=== PATIENT | female | born 1995 | race Caucasian/White ===

== ENCOUNTER 2018-06-20 16:59 | Inpatient (IN) | payer OTHER, MEDICAID ==
[~2018-06-20] VITALS: Ht 157.5 cm; Wt 82.6 kg
--- NOTE | ~2018-06-20 | CON ---
[address] [address] CONSULTATION Name: ANA CHISHOLM Room: [address] IN M.R.#: [id number] Admission: 06/20/18 Attend Phys: Shravan Santos Discharge: Date of : 89 Report #: [id number] THIS REPORT FOR: //name// CC: NATHALIA physician/PCP Bob Brennan DICTATED BY: Francy Green [facility] DATE OF SERVICE: 06/21/2018 PRIMARY CARE PHYSICIAN: The patient does not have a PCP at this time. Please note at the time of this dictation, the patient was seen and physically examined by myself. REASON FOR CONSULTATION: Abdominal pain, nausea and vomiting. HISTORY OF PRESENT ILLNESS: This is a 23-year-old female who presented to the Emergency Room, started having nausea and vomiting and diarrhea on Thursday afternoon. She does state that her daughter had a viral illness of nausea, vomiting and diarrhea earlier in the week. She states that she started developing some pain on Thursday, which got significantly worse on Thursday which was in her right upper quadrant. She states she had numerous episodes of nausea and vomiting and diarrhea. She states at the very end of her vomiting, she noticed just a tinge of some bright red blood when she was dry heaving. Diarrhea, she denies any bright red blood or any melena. She states she was going 5-10 times a day along with her nausea and vomiting as well. Prior to starting of these episodes on Thursday, she was doing well and had no complaints. Currently, her abdominal discomfort is rated at 3. She is no longer having any vomiting, just some very slight nausea and she has not had a bowel movement since yesterday. ALLERGIES: No known drug allergies. MEDICATIONS: From home control pills. PAST MEDICAL HISTORY: Hypertension, RSV. PAST SURGICAL HISTORY: Negative. SOCIAL HISTORY: She does smoke. Alcohol socially. She denies recreational drug use; however, she did test positive for THC, which she states she does not do regularly. REVIEW OF SYSTEMS: Twelve-point review of systems is essentially negative except what is [place] [address] CONSULTATION Name: ANA CHISHOLM Beata Room: [address] [place] [facility]#: [id number] Admission: 06/20/18 Attend Phys: Shravan Santos Discharge: Date of : 89 Report #: [id number] PHYSICAL EXAMINATION: VITAL SIGNS: Temperature 37.4, pulse 95, respirations 16, blood pressure 147/61. HEART: Regular rate and rhythm. LUNGS: Clear. ABDOMEN: Soft, positive bowel sounds in all 4 quadrants with tenderness noted in the right upper quadrant. LABORATORY DATA: Hemoglobin is 11.5 on admission, her white count was 25.2. She is down to 9.4, platelets 238, GFR is 154. LFTs are completely normal and again she did test positive for marijuana. Ultrasound is pending. CT was negative and chest x-ray was negative. IMPRESSION: 1. Nausea and vomiting, improved. 2. Diarrhea, improving. 3. Abdominal pain, significant improvement. 4. Leukocytosis, resolved. 5. Positive for THC. PLAN: 1. Awaiting results of ultrasound. If negative, advanced diet as tolerated. 2. If abdominal pain should return, we will consider a CCK PIPIDA scan. 3. Further recommendations to be made once the above have been noted. Thank you for allowing us to participate in this patient's care. Please do not hesitate to call with any questions in regard to this consult. By: [id number] Guidry MD /nt
[~2018-06-20 16:59] MED LIST: ACETAMINOPHEN-1 EAC1 PO; BLEPH-105 ML OPHTHALMIC; MONO-LINYAH1 EACH PO; NAPROSYN250 MG PO; NAPROSYN500 MG PO; NOHOMEMEDICATIONS; ONDANSETRON HCL4 M2 PO; ZOFRAN ODT4 M1 PO
[2018-06-20 17:05] VITALS: BP 183/113
[2018-06-20 17:24] LABS: URINE BLOOD 3+ (Negative); URINE CLARITY CLEAR; URINE COLOR YELLOW; URINE GLUCOSE-RANDOM NEGATIVE (Negative); URINE LEUKOCYTES-REFLEX NEGATIVE (Negative); URINE NITRITE-REFLEX NEGATIVE (Negative); URINE PROTEIN 1+ (Negative); URINE SPECIFIC GRAVITY >= 1.030 (1.005-1.030); URINE UROBILINOGEN 0.2 E.U./dl (0.2-1.0)
[2018-06-20 17:27] LABS: ICTOTEST (BILI CONFIRMATORY) Negative (Negative); URINE BILIRUBIN 1+ (Negative); URINE KETONES 3+ (Negative)
[2018-06-20 17:31] LABS: AMP/METHAMP Negative (Negative); BARBITURATES Negative (Negative); BENZODIAZEPINES Negative (Negative); COCAINE Negative (Negative); METHADONE Negative (Negative); OPIATES Negative (Negative); PCP Negative (Negative); THC POSITIVE (Negative)
[2018-06-20 17:35] LABS: HEMATOCRIT 44.3 % (37.0-47.0); MCH 29.3 pg (26.0-34.0); MCHC 33.9 g/dL (28.0-37.0); MCV 86.4 fL (80.0-100.0); MPV 9.4 fl. (7.2-11.1); NUCLEATED RBCS 0 /100WBC; PLATELET COUNT* 400 thou/uL (150-400); RBC 5.12 mil/uL (4.20-5.00); RDW-CV 15.1 % (10.5-14.5); WBC 25.2 thou/uL (4.0-11.0)
[2018-06-20 17:38] LABS: SQUAMOUS >10 Many /LPF (0-3)
[2018-06-20 17:39] LABS: BACTERIA-REFLEX 1-9 Few /HPF (None Seen); CASTS None Seen /LPF (None Seen); CRYSTALS None Seen /LPF (None Seen); MUCUS 4-6 Moderate strn/LPF (None Seen); URINE RBC 0-2 Rare /HPF (0-2); URINE WBC-REFLEX 0-5 Rare /HPF (0-5)
[2018-06-20 17:44] LABS: APTT 28.9 Seconds (25.0-31.3); PROTIME 10.3 Seconds (9.20-11.50)
[2018-06-20 17:49] LABS: ALBUMIN 4.5 g/dL (3.4-5.0); CALCIUM 9.2 mg/dL (8.5-10.1); CREATININE 0.6 mg/dL (0.6-1.3); POTASSIUM 3.6 mmol/L (3.5-5.1); TOTAL BILIRUBIN 0.6 mg/dL (<0.1-1.0)
[2018-06-20 18:00] LABS: ABSOLUTE LYMPHOCYTES 1.3 thou/uL (0.8-5.3); ABSOLUTE NEUTROPHILS 22.9 thou/uL (1.6-8.1); PLATELET ESTIMATE ADEQUATE
--- NOTE | 2018-06-20 18:52 | NUR ---
REPORT GIVEN TO SOSA JEAN WHO IS TO ASSUME PT CARE AT THIS TIME.
[2018-06-20 20:46] VITALS: BP 127/93
[2018-06-20 21:00] VITALS: BP 122/76
--- NOTE | 2018-06-20 23:16 | NUR ---
PT. ADMITTED TO ROOM 110 @ 2044 VIA ER CART. PT. IS ALERT AND ORIENTED, TRANSFERS INDEPENDENTLY. C/O RIGHT UPPER QUAD PAIN, /. C/O NAUSEA, ZOFRAN GIVEN PER PRN ORDER. ORIENTED TO ROOM, CALL LIGHT. PT'S MOTHER AT BEDSIDE, PLAN TO STAY THE NIGHT WITH PT. PT. HAS BRACE ON LEFT WRIST, PT. FRACTURED LEFT WRIST 2 MONTHS AGO FROM FALLING ON THE ICE. NS INFUSING AT 100CC/HR. DENIES NEEDS, CALL LIGHT IN REACH, WILL CONTINUE TO MONITOR.
--- NOTE | 2018-06-21 05:02 | NUR ---
PT. SLEPT WELL THROUGHOUT SHIFT. C/O NAUSEA UPON ADMISSION, ZOFRAN GIVEN. NO COMPLAINTS OF NAUSEA/VOMITING OR PAIN SINCE ADMISSION. PT. MOTHER REMAINS AT BEDSIDE, CALL LIGHT IN REACH, WILL CONTINUE TO MONITOR.
[2018-06-21 06:18] LABS: HEMATOCRIT 34.1 % (37.0-47.0); MCH 29.4 pg (26.0-34.0); MCHC 33.6 g/dL (28.0-37.0); MCV 87.3 fL (80.0-100.0); MPV 8.5 fl. (7.2-11.1); RBC 3.91 mil/uL (4.20-5.00); RDW-CV 14.7 % (10.5-14.5)
[2018-06-21 06:19] LABS: HEMOGLOBIN 11.5 gm/dL (12.0-15.0); WBC 9.4 thou/uL (4.0-11.0)
[2018-06-21 06:44] LABS: ALBUMIN 2.9 g/dL (3.4-5.0); CREATININE 0.5 mg/dL (0.6-1.3); MAGNESIUM 1.7 mg/dL (1.8-2.4); POTASSIUM 3.4 mmol/L (3.5-5.1); TOTAL BILIRUBIN 0.6 mg/dL (<0.1-1.0); TOTAL PROTEIN 6.2 g/dL (6.4-8.2)
[2018-06-21 06:45] LABS: CALCIUM 7.2 mg/dL (8.5-10.1)
[2018-06-21 07:50] VITALS: BP 147/91
[2018-06-21 16:39] VITALS: BP 132/80
--- NOTE | 2018-06-21 17:14 | NUR ---
ASSUMED CARE OF PATIENT AT APPROX 0730. ALERT AND ORIENTED X4. ASSESSMENT COMPLETED AND CHARTED. VSS ON ROOMA IR. PAIN AND NAUSEA MANAGED WITH MEDICATIONS. PATIENT ADVANCED TO CLEAR LIQUIDS AND HAS ASKED NUMEROUS TIMES FOR SOLID FOODS. FLUIDS INFUSED ORDERED. PATIENT UP AD ADOLFO. CALL LIGHT WITHIN REACH. HOURLY ROUNDS COMPLETED. NURSING WILL CONTINUE TO MONITOR.
[2018-06-21 19:20] VITALS: BP 118/72
[2018-06-22 04:40] LABS: CALCIUM 7.5 mg/dL (8.5-10.1); CREATININE 0.5 mg/dL (0.6-1.3); POTASSIUM 3.4 mmol/L (3.5-5.1)
[2018-06-22 05:11] LABS: ABSOLUTE EOSINOPHILS 0.2 thou/uL (0.0-0.7); ABSOLUTE LYMPHOCYTES 2.4 thou/uL (0.8-5.3); ABSOLUTE NEUTROPHILS 4.4 thou/uL (1.6-8.1); BASOPHILS 0.5 %; EOSINOPHILS 2.1 %; HEMATOCRIT 34.5 % (37.0-47.0); HEMOGLOBIN 11.4 gm/dL (12.0-15.0); LYMPHOCYTES 29.6 %; MCH 28.8 pg (26.0-34.0); MCHC 32.9 g/dL (28.0-37.0); MCV 87.6 fL (80.0-100.0); MONOCYTES 12.8 %; MPV 9.4 fl. (7.2-11.1); NUCLEATED RBCS 0 /100WBC; PLATELET COUNT* 240 thou/uL (150-400); RBC 3.94 mil/uL (4.20-5.00); RDW-CV 14.6 % (10.5-14.5)
--- NOTE | 2018-06-22 05:18 | NUR ---
REPORT RECEIVED FROM OFF GOIGN SHIFT AND CARE ASSUMMED. PT AAOX4, RESP REG AND UNLABORED SKIN W/D. NO ACUTE DISTRESS NOTED. PT DENIES PAIN AT THIS TIME, BUT STATED WHEN HER ABDOMEN HURT IT WAS IN THE UPPER CENTER AREA OF ABDOMEN. PT STATED SHE IS HOPING TO GET TO EAT IN AM. VSS AND NO ACUTE CHANGES DURING SHIFT. WILL CONTINUE TO MONITOR.
[2018-06-22 06:23] LABS: MAGNESIUM 2.1 mg/dL (1.8-2.4); PHOSPHORUS* 1.9 mg/dL (2.5-4.9)
[2018-06-22 07:40] VITALS: BP 124/78
[2018-06-22 09:44] VITALS: BP 124/78
--- NOTE | 2018-06-22 10:02 | EKG ---
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
--- NOTE | 2018-06-22 12:20 | NUR ---
ASSUMED CARE OF PT AROUND 0730 THIS AM. REFER TO ASSESSMENT. VSS. PT REPORTS NO NAUSEA AND VOMITTING. DC ORDERS IF PT TOLERATES ADVANCED DIET. PT TOLERATED BREAKFAST THIS AM. WILL DC IF TOLERATES LUNCH WITHOUT DIFFICULTY. NO OTHER CONCERNS AT THIS TIME. CLWR. WCTM.
--- NOTE | 2018-06-22 13:29 | NUR ---
DISCHARGE INSTRUCTIONS GIVEN TO PT AT THIS TIME. PT VERBALIZES UNDERSTANDING. NO OTHER CONCERNS AT THIS TIME. CLWR. WCTM.
== END 2018-06-22 14:11 | disposition home or self-care (01) | DRG 392 ==
LOC: M.ERS 16:59 → M.TBA-ER 19:05 → M.ERS 19:05 → M.ORTHSURG 20:31 → M.TBA-ER 20:31 → M.ORTHSURG 20:53
PROVIDERS: Internal Medicine; Physician Assistant; Surgery; ADMIT Internal Medicine
DX: R10.9 Unspecified abdominal pain (principal); D72.829 Elevated white blood cell count, unspecified; I10 Essential (primary) hypertension; E86.0 Dehydration; Z82.49 Family history of ischemic heart disease and other diseases of the circulatory system; Z87.81 Personal history of (healed) traumatic fracture

== ENCOUNTER 2019-05-23 23:10 | Emergency (ER) | payer OTHER ==
[~2019-05-23] VITALS: Ht 154.9 cm; Wt 59.0 kg
[2019-05-23] MEDS ORDERED: BP MED (23:34)
[2019-05-24 01:26] VITALS: BP 125/89
== END 2019-05-24 01:28 | disposition home or self-care (01) ==
LOC: M.ERS 23:10
DX: S93.492A Sprain of other ligament of left ankle, initial encounter (principal); I10 Essential (primary) hypertension; F17.210 Nicotine dependence, cigarettes, uncomplicated; W10.8XXA Fall (on) (from) other stairs and steps, initial encounter; Y93.89 Activity, other specified; Y92.89 Other specified places as the place of occurrence of the external cause; Y99.8 Other external cause status